=== PATIENT | male | born 1985 | race African-American/Black ===

== ENCOUNTER 2017-08-09 04:31 | Emergency (ER) | payer OTHER, MEDICAID ==
[~2017-08-09] VITALS: Ht 185.4 cm; Wt 82.0 kg
[2017-08-09] MEDS ORDERED: KETOROLAC 30 MG/1 ML ONE (04:58)
[2017-08-09] MEDS ORDERED: KETOROLAC 30 MG/1 ML IM ONE (05:00)
[2017-08-09 06:42] VITALS: BP 140/60
== END 2017-08-09 06:46 | disposition home or self-care (01) ==
LOC: ED 06:00
DX: S70.02XA Contusion of left hip, initial encounter (principal); F17.210 Nicotine dependence, cigarettes, uncomplicated; R07.89 Other chest pain; W18.39XA Other fall on same level, initial encounter; Y93.89 Activity, other specified; Y92.488 Other paved roadways as the place of occurrence of the external cause; Y99.2 Volunteer activity
CPT/HCPCS: 70450; 71101; 73502; 96372; 99284; J1885